=== PATIENT | female | born 1935 | race African-American/Black ===

== ENCOUNTER 2020-09-20 03:27 | Emergency (ER) | payer MEDICARE, BC ==
[~2020-09-20] VITALS: Ht 157.5 cm; Wt 73.0 kg
[~2020-09-20 03:27] MED LIST: AMLO2.5T45 PO; ASPI-1073 PO; ATOR10TA69 PO; CALCITONIN SALMON PO; FESO4TAB PO; POTA20TA12 PO; TRIA1TAB5 PO
[2020-09-20] MEDS ORDERED: PREDNISONE 20MG TABLET PO STA (03:39)
[2020-09-20] MEDS ORDERED: MAGNESIUM 2 G PREMIX 50 ML IV STA (03:39)
[2020-09-20] MEDS ORDERED: IPRATROPIUM BROMIDE (0.02%) 0.5MG/2.5ML NEB HHN STA (03:39)
[2020-09-20] MEDS ORDERED: ALBUTEROL (0.083%) 2.5MG/3ML NEB HHN STA (03:39)
[2020-09-20 05:18] VITALS: BP 158/62
== END 2020-09-20 05:20 | disposition home or self-care (01) ==
LOC: ER 03:27
DX: J44.1 Chronic obstructive pulmonary disease with (acute) exacerbation (principal); N28.9 Disorder of kidney and ureter, unspecified; Z20.828 Contact with and (suspected) exposure to other viral communicable diseases; Z88.0 Allergy status to penicillin; Z79.899 Other long term (current) drug therapy
CPT/HCPCS: 71045; 94644; 96365; 99291; C9803; J3475; J7512; U0003

== ENCOUNTER 2020-09-21 06:09 | Inpatient (IN) | payer MEDICARE, BC ==
[~2020-09-21] VITALS: Ht 152.4 cm; Wt 54.0 kg
[2020-09-21] MEDS ORDERED: METHYLPREDNISOLONE SOD SUCC 125 MG/2 ML VIAL IV STA (06:42)
[2020-09-21] MEDS ORDERED: IPRATROPIUM BROMIDE (0.02%) 0.5MG/2.5ML NEB HHN STA (06:42)
[2020-09-21] MEDS ORDERED: MAGNESIUM 2 G PREMIX 50 ML IV STA (06:42)
[2020-09-21] MEDS ORDERED: ALBUTEROL (0.083%) 2.5MG/3ML NEB HHN STA (06:42)
[2020-09-21 09:06] LABS: CHLORIDE 107 mEq/L (98-107); HEMATOCRIT. 26.6 % (36.0-48.0); MEAN CORPUSCULAR HEMOGLOBIN 34.1 pg (28.0-32.0); MEAN CORPUSCULAR VOLUME 100.9 fL (81.0-99.0); PLATELET 273 x1000/uL (130-400); RED BLOOD CELL COUNT 2.63 mill/uL (4.2-5.4); RED CELL DISTRIBUTION WIDTH 15.9 % (11.6-14.6)
[2020-09-21] MEDS ORDERED: LEVOFLOXACIN 750MG PREMIX 150 ML IV ONE (09:30)
[2020-09-21 10:01] LABS: BG BASE EXCESS -4.3 mmol/L (-2.0-2.0); BG CARBOXYHEMOGLOBIN 0.3 % (0.5-1.5); BG DEOXYHEMOGLOBIN 0.6 % (0.0-5.0); BG HCO3 ACT 19.9 mmol/L (22.0-26.0); BG METHEMOGLOBIN 0.3 % (0.0-1.5); BG OXYGEN SATURATION 99.4 % (92.0-98.5); BG OXYHEMOGLOBIN 98.8 % (94.0-97.0); BG PH 7.399 (7.350-7.450); BG PO2 507.9 mmHg (75.0-100.0); BG SAMPLE SITE RIGHT BRACHIAL; BG VENT MODE MASK - BIPAP
[2020-09-21 10:37] LABS: PLATELET ESTIMATE NORMAL
[2020-09-21] MEDS ORDERED: MAGNESIUM/ALUMINUM HYDROXIDE/SIMETHICONE 30ML UDC PO PRN (19:30)
[2020-09-21] MEDS ORDERED: IPRATROPIUM/ALBUTEROL 0.5-3(2.5)MG/3ML NEB HHN PRN (19:30)
[2020-09-21] MEDS ORDERED: DEXT 5%/0.45% NACL 1000ML 1,000 ML IV SCH (19:30)
[2020-09-21] MEDS ORDERED: GUAIFENESIN 200MG/10ML SUGAR FREE UDC PO PRN (19:30)
[2020-09-21] MEDS ORDERED: ACETAMINOPHEN 325MG TABLET PO PRN (19:30)
[2020-09-21] MEDS ORDERED: CLONIDINE 0.1MG TABLET PO PRN (19:30)
[2020-09-21] MEDS ORDERED: DIPHENHYDRAMINE 50MG/ML VIAL IV PRN (19:30)
[2020-09-21] MEDS: OMEPRAZOLE 20MG CAPSULE EXTENDED RELEASE PO SCH (21:52)
[2020-09-21] MEDS: ENOXAPARIN 40MG/0.4ML SYR SUBCUT SCH (21:52)
[2020-09-21 22:25] LABS: TOTAL IRON BINDING CAPACITY 258 ug/dL (250-450)
[2020-09-21] MEDS: CARVEDILOL 6.25 MG TABLET PO SCH (23:01)
[2020-09-22] VITALS (12 sets, daily range): BP systolic 132–161; BP diastolic 60–96
[2020-09-22] MEDS: ZOLPIDEM TARTRATE 5MG TABLET PO PRN (02:32)
[2020-09-22] MEDS: ACETAMINOPHEN 325MG TABLET PO PRN (02:32)
[2020-09-22 07:08] LABS: HEMATOCRIT. 24.9 % (36.0-48.0); HEMOGLOBIN. 8.4 g/dL (12.0-16.0); MEAN CORPUSCULAR HEMOGLOBIN 33.7 pg (28.0-32.0); MEAN CORPUSCULAR VOLUME 99.9 fL (81.0-99.0); MEAN PLATELET VOLUME 8.8 fl (7.4-10.4); PLATELET 231 x1000/uL (130-400); RED CELL DISTRIBUTION WIDTH 15.4 % (11.6-14.6)
[2020-09-22 07:24] LABS: PHOSPHORUS 7.3 mg/dL (2.5-4.9)
[2020-09-22] MEDS: OMEPRAZOLE 20MG CAPSULE EXTENDED RELEASE PO SCH ×2 (08:40→21:09)
[2020-09-22] MEDS: CARVEDILOL 6.25 MG TABLET PO SCH ×2 (08:41→21:10)
[2020-09-22] MEDS ORDERED: LOSARTAN POTASSIUM 50 MG TABLET PO SCH (09:00)
[2020-09-22] MEDS ORDERED: FUROSEMIDE 40MG/4ML VIAL IVP NR (13:00)
[2020-09-22] MEDS ORDERED: FUROSEMIDE 100MG/10ML VIAL IVP ONE (13:30)
[2020-09-22 13:34] LABS: PLATELET ESTIMATE NORMAL
[2020-09-22] MEDS: NITROGLYCERIN OINT 1GM/INCH UDPKT TD SCH ×2 (14:33→21:11)
[2020-09-22 18:00] LABS: T4 FREE 0.93 ng/dL (0.76-1.46)
[2020-09-22] MEDS ORDERED: FUROSEMIDE 100MG/10ML VIAL IVP NR (20:00)
[2020-09-22] MEDS: AMLODIPINE 2.5MG TABLET PO SCH (21:10)
[2020-09-22] MEDS: ONDANSETRON HCL 4MG/2ML INJ IV PRN (21:11)
[2020-09-22] MEDS: ENOXAPARIN 40MG/0.4ML SYR SUBCUT SCH (21:17)
[2020-09-23] VITALS (11 sets, daily range): BP systolic 103–136; BP diastolic 49–92
[2020-09-23 06:55] LABS: HEMATOCRIT. 24.1 % (36.0-48.0); MEAN CORPUSCULAR HEMOGLOBIN 32.9 pg (28.0-32.0); MEAN CORPUSCULAR VOLUME 99.5 fL (81.0-99.0); MEAN PLATELET VOLUME 9.2 fl (7.4-10.4); PLATELET 186 x1000/uL (130-400); RED BLOOD CELL COUNT 2.42 mill/uL (4.2-5.4); RED CELL DISTRIBUTION WIDTH 15.6 % (11.6-14.6)
[2020-09-23 07:12] LABS: VITAMIN B12 SERUM >2000 pg/mL pg/mL (211-911)
[2020-09-23] MEDS: NITROGLYCERIN OINT 1GM/INCH UDPKT TD SCH ×3 (07:42→22:00)
[2020-09-23 08:00] LABS: PHOSPHORUS 8.9 mg/dL (2.5-4.9)
[2020-09-23] MEDS: CALCIUM ACETATE 667MG CAPSULE PO SCH ×3 (08:33→18:41)
[2020-09-23] MEDS: OMEPRAZOLE 20MG CAPSULE EXTENDED RELEASE PO SCH ×2 (08:33→21:15)
[2020-09-23] MEDS: CARVEDILOL 6.25 MG TABLET PO SCH ×2 (08:34→21:17)
[2020-09-23] MEDS: AMLODIPINE 2.5MG TABLET PO SCH ×2 (08:34→21:23)
[2020-09-23] MEDS: IPRATROPIUM/ALBUTEROL 0.5-3(2.5)MG/3ML NEB HHN SCH ×2 (08:47→21:09)
[2020-09-23] MEDS: FOLIC ACID/VITAMIN B COMP W-C TABLET PO SCH (13:21)
[2020-09-23] MEDS: METHYLPREDNISOLONE SOD SUCC 40 MG/ML VIAL IV SCH ×2 (13:21→21:12)
[2020-09-23 18:03] LABS: PLATELET ESTIMATE NORMAL
[2020-09-23] MEDS ORDERED: EPOETIN ALFA-EPBX 10,000 UNIT/ML VIAL SUBCUT SCH (21:00)
[2020-09-23] MEDS: ZOLPIDEM TARTRATE 5MG TABLET PO PRN (21:14)
[2020-09-23] MEDS: ENOXAPARIN 30MG/0.3ML SYR SUBCUT SCH (21:16)
[2020-09-24] VITALS (12 sets, daily range): BP systolic 106–149; BP diastolic 47–110
[2020-09-24] MEDS: METHYLPREDNISOLONE SOD SUCC 40 MG/ML VIAL IV SCH ×3 (02:46→20:04)
[2020-09-24] MEDS: NITROGLYCERIN OINT 1GM/INCH UDPKT TD SCH ×3 (05:28→20:05)
[2020-09-24 08:08] LABS: HEMATOCRIT. 23.3 % (36.0-48.0); HEMOGLOBIN. 7.8 g/dL (12.0-16.0); MEAN CORPUSCULAR HEMOGLOBIN 33.6 pg (28.0-32.0); PLATELET 177 x1000/uL (130-400); RED BLOOD CELL COUNT 2.33 mill/uL (4.2-5.4); RED CELL DISTRIBUTION WIDTH 15.7 % (11.6-14.6)
[2020-09-24] MEDS: CALCIUM ACETATE 667MG CAPSULE PO SCH ×3 (08:22→17:04)
[2020-09-24] MEDS: FOLIC ACID/VITAMIN B COMP W-C TABLET PO SCH (08:22)
[2020-09-24] MEDS: OMEPRAZOLE 20MG CAPSULE EXTENDED RELEASE PO SCH ×2 (08:22→20:04)
[2020-09-24] MEDS: CARVEDILOL 6.25 MG TABLET PO SCH ×2 (08:23→20:04)
[2020-09-24] MEDS: AMLODIPINE 2.5MG TABLET PO SCH ×2 (08:23→20:17)
[2020-09-24 09:13] LABS: PHOSPHORUS 8.5 mg/dL (2.5-4.9)
[2020-09-24] MEDS ORDERED: HEPARIN SODIUM 1,000 UNIT/1ML VIAL IV SCH (09:30)
[2020-09-24 11:23] LABS: HEPATITIS B SURFACE ANTIGEN NEGATIVE
[2020-09-24] MEDS: IPRATROPIUM/ALBUTEROL 0.5-3(2.5)MG/3ML NEB HHN SCH ×2 (16:57→20:54)
[2020-09-24 17:08] LABS: PLATELET ESTIMATE NORMAL
[2020-09-24] MEDS: ENOXAPARIN 30MG/0.3ML SYR SUBCUT SCH (20:05)
[2020-09-25] VITALS (15 sets, daily range): BP systolic 113–156; BP diastolic 57–75
[2020-09-25] MEDS: IPRATROPIUM/ALBUTEROL 0.5-3(2.5)MG/3ML NEB HHN SCH ×3 (00:35→21:51)
[2020-09-25] MEDS: METHYLPREDNISOLONE SOD SUCC 40 MG/ML VIAL IV SCH ×3 (03:35→17:57)
[2020-09-25] MEDS: NITROGLYCERIN OINT 1GM/INCH UDPKT TD SCH ×3 (05:31→22:31)
[2020-09-25 07:00] LABS: HEMATOCRIT. 24.3 % (36.0-48.0); HEMOGLOBIN. 8.1 g/dL (12.0-16.0); MEAN CORPUSCULAR HEMOGLOBIN 33.1 pg (28.0-32.0); MEAN CORPUSCULAR VOLUME 98.9 fL (81.0-99.0); MEAN PLATELET VOLUME 9.8 fl (7.4-10.4); PLATELET 196 x1000/uL (130-400); RED BLOOD CELL COUNT 2.46 mill/uL (4.2-5.4); RED CELL DISTRIBUTION WIDTH 15.6 % (11.6-14.6)
[2020-09-25 07:40] LABS: PHOSPHORUS 4.9 mg/dL (2.5-4.9)
[2020-09-25] MEDS: FOLIC ACID/VITAMIN B COMP W-C TABLET PO SCH (08:53)
[2020-09-25] MEDS: CALCIUM ACETATE 667MG CAPSULE PO SCH ×3 (08:53→17:18)
[2020-09-25] MEDS: OMEPRAZOLE 20MG CAPSULE EXTENDED RELEASE PO SCH (08:53)
[2020-09-25] MEDS: AMLODIPINE 2.5MG TABLET PO SCH ×2 (09:00→20:38)
[2020-09-25] MEDS: CARVEDILOL 6.25 MG TABLET PO SCH ×2 (09:00→20:39)
[2020-09-25] MEDS: ACETAMINOPHEN 325MG TABLET PO PRN (11:50)
[2020-09-25] MEDS: FERROUS SULFATE 325MG TABLET PO SCH (17:18)
[2020-09-25 19:06] LABS: PLATELET ESTIMATE NORMAL
[2020-09-25] MEDS: ENOXAPARIN 30MG/0.3ML SYR SUBCUT SCH (20:39)
[2020-09-26] VITALS (12 sets, daily range): BP systolic 120–157; BP diastolic 65–92
[2020-09-26] MEDS: ACETAMINOPHEN 325MG TABLET PO PRN ×2 (02:32→09:33)
[2020-09-26] MEDS: METHYLPREDNISOLONE SOD SUCC 40 MG/ML VIAL IV SCH ×3 (02:43→18:17)
[2020-09-26] MEDS: IPRATROPIUM/ALBUTEROL 0.5-3(2.5)MG/3ML NEB HHN SCH ×3 (03:33→15:14)
[2020-09-26] MEDS: NITROGLYCERIN OINT 1GM/INCH UDPKT TD SCH ×3 (06:18→21:21)
[2020-09-26] MEDS: CALCIUM ACETATE 667MG CAPSULE PO SCH ×3 (08:54→17:49)
[2020-09-26] MEDS: FAMOTIDINE 20MG TABLET PO SCH (08:54)
[2020-09-26] MEDS: FOLIC ACID/VITAMIN B COMP W-C TABLET PO SCH (08:54)
[2020-09-26] MEDS: CARVEDILOL 6.25 MG TABLET PO SCH ×2 (08:55→21:20)
[2020-09-26] MEDS: AMLODIPINE 2.5MG TABLET PO SCH ×2 (08:55→21:20)
[2020-09-26] MEDS: FERROUS SULFATE 325MG TABLET PO SCH ×2 (09:32→17:49)
[2020-09-26 12:13] LABS: HEMATOCRIT 32.3 % (36.0-48.0); HEMOGLOBIN 10.8 g/dL (12.0-16.0); PLATELET 180 x1000/uL (130-400); RED BLOOD CELL COUNT 3.26 mill/uL (4.2-5.4); RED CELL DISTRIBUTION WIDTH 14.9 % (11.6-14.6)
[2020-09-26] MEDS: HYDROCODONE/APAP 7.5/325MG 1 TAB TABLET PO PRN (12:40)
[2020-09-26] MEDS: ONDANSETRON HCL 4MG/2ML INJ IV PRN (14:26)
[2020-09-26] MEDS: ENOXAPARIN 30MG/0.3ML SYR SUBCUT SCH (21:21)
[2020-09-26] MEDS: ZOLPIDEM TARTRATE 5MG TABLET PO PRN (23:40)
[2020-09-27] VITALS (12 sets, daily range): BP systolic 129–160; BP diastolic 50–88
[2020-09-27] MEDS: METHYLPREDNISOLONE SOD SUCC 40 MG/ML VIAL IV SCH ×3 (03:01→18:06)
[2020-09-27] MEDS: HYDROCODONE/APAP 7.5/325MG 1 TAB TABLET PO PRN ×2 (03:02→22:38)
[2020-09-27] MEDS: NITROGLYCERIN OINT 1GM/INCH UDPKT TD SCH ×3 (05:20→22:42)
[2020-09-27 07:49] LABS: HEMOGLOBIN. 11.4 g/dL (12.0-16.0); MEAN CORPUSCULAR HEMOGLOBIN 33.2 pg (28.0-32.0); MEAN CORPUSCULAR VOLUME 98.8 fL (81.0-99.0); MEAN PLATELET VOLUME 9.8 fl (7.4-10.4); PLATELET 223 x1000/uL (130-400); RED BLOOD CELL COUNT 3.44 mill/uL (4.2-5.4); RED CELL DISTRIBUTION WIDTH 14.8 % (11.6-14.6)
[2020-09-27] MEDS: CALCIUM ACETATE 667MG CAPSULE PO SCH ×3 (09:05→17:29)
[2020-09-27] MEDS: FERROUS SULFATE 325MG TABLET PO SCH ×2 (09:05→17:29)
[2020-09-27] MEDS: AMLODIPINE 2.5MG TABLET PO SCH ×2 (09:05→22:00)
[2020-09-27] MEDS: FOLIC ACID/VITAMIN B COMP W-C TABLET PO SCH (09:05)
[2020-09-27] MEDS: FAMOTIDINE 20MG TABLET PO SCH (09:05)
[2020-09-27] MEDS: CARVEDILOL 6.25 MG TABLET PO SCH ×2 (09:06→22:00)
[2020-09-27] MEDS: IPRATROPIUM/ALBUTEROL 0.5-3(2.5)MG/3ML NEB HHN SCH ×2 (10:46→21:11)
[2020-09-27] MEDS: PANTOPRAZOLE SODIUM 40 MG/VIAL IV SCH (12:13)
[2020-09-27 15:51] LABS: PLATELET ESTIMATE NORMAL
[2020-09-27] MEDS ORDERED: EPOETIN ALFA-EPBX 4,000 UNIT/ML VIAL SUBCUT SCH (21:00)
[2020-09-27] MEDS: ENOXAPARIN 30MG/0.3ML SYR SUBCUT SCH (22:01)
[2020-09-28] VITALS (13 sets, daily range): BP systolic 123–170; BP diastolic 65–95
[2020-09-28] MEDS: IPRATROPIUM/ALBUTEROL 0.5-3(2.5)MG/3ML NEB HHN SCH ×4 (00:37→21:26)
[2020-09-28] MEDS: METHYLPREDNISOLONE SOD SUCC 40 MG/ML VIAL IV SCH ×2 (03:43→12:09)
[2020-09-28] MEDS: NITROGLYCERIN OINT 1GM/INCH UDPKT TD SCH ×3 (05:25→22:00)
[2020-09-28] MEDS: CALCIUM ACETATE 667MG CAPSULE PO SCH ×3 (08:56→17:32)
[2020-09-28] MEDS: PANTOPRAZOLE SODIUM 40 MG/VIAL IV SCH (08:56)
[2020-09-28] MEDS: CARVEDILOL 6.25 MG TABLET PO SCH ×2 (08:57→21:59)
[2020-09-28] MEDS: FAMOTIDINE 20MG TABLET PO SCH (08:57)
[2020-09-28] MEDS: FERROUS SULFATE 325MG TABLET PO SCH ×2 (08:57→17:32)
[2020-09-28] MEDS: FOLIC ACID/VITAMIN B COMP W-C TABLET PO SCH (08:57)
[2020-09-28] MEDS: AMLODIPINE 2.5MG TABLET PO SCH ×2 (08:58→21:59)
[2020-09-28 12:53] LABS: HEMATOCRIT. 35.7 % (36.0-48.0); HEMOGLOBIN. 11.8 g/dL (12.0-16.0); MEAN CORPUSCULAR HEMOGLOBIN 32.4 pg (28.0-32.0); MEAN CORPUSCULAR VOLUME 98.4 fL (81.0-99.0); MEAN PLATELET VOLUME 9.9 fl (7.4-10.4); PLATELET 191 x1000/uL (130-400); RED BLOOD CELL COUNT 3.63 mill/uL (4.2-5.4); RED CELL DISTRIBUTION WIDTH 14.6 % (11.6-14.6)
[2020-09-28 12:58] LABS: PARTIAL THROMBOPLASTIN TIME 28.5 sec (23.4-31.0); PROTHROMBIN TIME 10.6 sec (9.6-11.0)
[2020-09-28 17:14] LABS: BG BASE EXCESS 1.2 mmol/L (-2.0-2.0); BG CARBOXYHEMOGLOBIN 0.3 % (0.5-1.5); BG DEOXYHEMOGLOBIN 1.7 % (0.0-5.0); BG FRACTION INSPIRED OXYGEN 50; BG HCO3 ACT 25.2 mmol/L (22.0-26.0); BG METHEMOGLOBIN 0.1 % (0.0-1.5); BG OXYGEN SATURATION 98.3 % (92.0-98.5); BG OXYHEMOGLOBIN 97.9 % (94.0-97.0); BG PO2 113.4 mmHg (75.0-100.0); BG SAMPLE SITE RIGHT BRACHIAL; BG VENT MODE MASK - VENTI
[2020-09-28] MEDS ORDERED: LORAZEPAM 0.5MG TABLET PO PRN (17:15)
[2020-09-28 18:37] LABS: PLATELET ESTIMATE NORMAL
[2020-09-28] MEDS: ZOLPIDEM TARTRATE 5MG TABLET PO PRN (21:59)
[2020-09-28] MEDS: ENOXAPARIN 30MG/0.3ML SYR SUBCUT SCH (21:59)
[2020-09-28] MEDS ORDERED: METHYLPREDNISOLONE SOD SUCC 40 MG/ML VIAL IV SCH (23:00)
[2020-09-29] VITALS (12 sets, daily range): BP systolic 107–158; BP diastolic 55–92
[2020-09-29] MEDS: IPRATROPIUM/ALBUTEROL 0.5-3(2.5)MG/3ML NEB HHN SCH ×4 (01:50→22:20)
[2020-09-29] MEDS: NITROGLYCERIN OINT 1GM/INCH UDPKT TD SCH ×3 (05:22→20:34)
[2020-09-29 07:18] LABS: HEMATOCRIT. 36.3 % (36.0-48.0); HEMOGLOBIN. 12.1 g/dL (12.0-16.0); MEAN CORPUSCULAR HEMOGLOBIN 32.7 pg (28.0-32.0); MEAN CORPUSCULAR VOLUME 98.3 fL (81.0-99.0); MEAN PLATELET VOLUME 9.6 fl (7.4-10.4); PLATELET 178 x1000/uL (130-400); RED BLOOD CELL COUNT 3.69 mill/uL (4.2-5.4); RED CELL DISTRIBUTION WIDTH 14.6 % (11.6-14.6)
[2020-09-29 07:28] LABS: PHOSPHORUS 3.6 mg/dL (2.5-4.9)
[2020-09-29] MEDS: DOXERCALCIFEROL 0.5MCG CAPSULE PO SCH (09:00)
[2020-09-29] MEDS: CARVEDILOL 6.25 MG TABLET PO SCH ×2 (09:00→20:33)
[2020-09-29] MEDS ORDERED: METHYLPREDNISOLONE SOD SUCC 40 MG/ML VIAL IV SCH (09:00)
[2020-09-29] MEDS: AMLODIPINE 2.5MG TABLET PO SCH ×2 (09:00→20:33)
[2020-09-29] MEDS: CALCIUM ACETATE 667MG CAPSULE PO SCH ×3 (09:07→18:53)
[2020-09-29] MEDS: FERROUS SULFATE 325MG TABLET PO SCH ×2 (09:08→18:53)
[2020-09-29] MEDS: FAMOTIDINE 20MG TABLET PO SCH (09:08)
[2020-09-29] MEDS: FOLIC ACID/VITAMIN B COMP W-C TABLET PO SCH (09:08)
[2020-09-29] MEDS: PANTOPRAZOLE SODIUM 40 MG/VIAL IV SCH (09:09)
[2020-09-29 17:27] LABS: PLATELET ESTIMATE NORMAL
[2020-09-29] MEDS: ENOXAPARIN 30MG/0.3ML SYR SUBCUT SCH (20:33)
[2020-09-29] MEDS: ZOLPIDEM TARTRATE 5MG TABLET PO PRN (20:33)
[2020-09-30] VITALS (22 sets, daily range): BP systolic 86–158; BP diastolic 50–86
[2020-09-30] MEDS: IPRATROPIUM/ALBUTEROL 0.5-3(2.5)MG/3ML NEB HHN SCH ×4 (04:17→21:18)
[2020-09-30 06:21] LABS: HEMOGLOBIN. 11.5 g/dL (12.0-16.0); MEAN CORPUSCULAR HEMOGLOBIN 33.2 pg (28.0-32.0); MEAN CORPUSCULAR VOLUME 97.9 fL (81.0-99.0); MEAN PLATELET VOLUME 9.5 fl (7.4-10.4); PLATELET 149 x1000/uL (130-400); RED BLOOD CELL COUNT 3.47 mill/uL (4.2-5.4); RED CELL DISTRIBUTION WIDTH 14.9 % (11.6-14.6)
[2020-09-30] MEDS: NITROGLYCERIN OINT 1GM/INCH UDPKT TD SCH ×2 (06:29→14:00)
[2020-09-30 06:45] LABS: PHOSPHORUS 2.1 mg/dL (2.5-4.9)
[2020-09-30] MEDS: CALCIUM ACETATE 667MG CAPSULE PO SCH ×3 (08:00→17:49)
[2020-09-30] MEDS: FERROUS SULFATE 325MG TABLET PO SCH ×2 (08:00→17:49)
[2020-09-30] MEDS: FAMOTIDINE 20MG TABLET PO SCH (09:00)
[2020-09-30] MEDS: FOLIC ACID/VITAMIN B COMP W-C TABLET PO SCH (09:00)
[2020-09-30] MEDS: DOXERCALCIFEROL 0.5MCG CAPSULE PO SCH (09:00)
[2020-09-30] MEDS ORDERED: METHYLPREDNISOLONE SOD SUCC 40 MG/ML VIAL IV SCH (09:00)
[2020-09-30] MEDS ORDERED: SODIUM BICARBONATE 4% (2.4MEQ) 5ML VIAL IV ONE (09:05)
[2020-09-30] MEDS ORDERED: LIDOCAINE HCL 1% 20ML VIAL (Pyxis) INJ ONE (09:06)
[2020-09-30] MEDS ORDERED: CLINDAMYCIN 300 MG in DEXTROSE 5% WATER 50 ML IV NR (09:30)
[2020-09-30] MEDS ORDERED: FENTANYL CITRATE/PF 50MCG/ML 2ML VIAL ONE (09:34)
[2020-09-30] MEDS: CARVEDILOL 6.25 MG TABLET PO SCH ×2 (13:33→20:48)
[2020-09-30] MEDS: AMLODIPINE 2.5MG TABLET PO SCH ×2 (13:33→20:47)
[2020-09-30 15:18] LABS: PLATELET ESTIMATE NORMAL
[2020-09-30] MEDS: ENOXAPARIN 30MG/0.3ML SYR SUBCUT SCH (20:50)
== END 2020-09-30 23:00 | disposition home or self-care (01) | DRG 871 ==
LOC: ER 06:09 → 5EST 10:33 → CANRESERV 21:24 → ENRESERV 21:24 → 5EST 09-24 16:49
PROVIDERS: ADMIT Internal Medicine; ATTEND Internal Medicine
PROC: 5A09457 Assistance with Respiratory Ventilation, 24-96 Consecutive Hours, Continuous Positive Airway Pressure (ICD-10-PCS; principal; 2020-09-21)
PROC: 02HV33Z Insertion of Infusion Device into Superior Vena Cava, Percutaneous Approach (ICD-10-PCS; 2020-09-23)
PROC: B5181ZA Fluoroscopy of Superior Vena Cava using Low Osmolar Contrast, Guidance (ICD-10-PCS; 2020-09-23)
PROC: B548ZZA Ultrasonography of Superior Vena Cava, Guidance (ICD-10-PCS; 2020-09-23)
PROC: 5A1D70Z Performance of Urinary Filtration, Intermittent, Less than 6 Hours Per Day (ICD-10-PCS; 2020-09-24)
PROC: 30233N1 Transfusion of Nonautologous Red Blood Cells into Peripheral Vein, Percutaneous Approach (ICD-10-PCS; 2020-09-25)
PROC: 5A1D70Z Performance of Urinary Filtration, Intermittent, Less than 6 Hours Per Day (ICD-10-PCS; 2020-09-26)
PROC: 5A1D70Z Performance of Urinary Filtration, Intermittent, Less than 6 Hours Per Day (ICD-10-PCS; 2020-09-28)
PROC: 02PYX3Z Removal of Infusion Device from Great Vessel, External Approach (ICD-10-PCS; 2020-09-30)
PROC: 0JHD3XZ Insertion of Tunneled Vascular Access Device into Right Upper Arm Subcutaneous Tissue and Fascia, Percutaneous Approach (ICD-10-PCS; 2020-09-30)
PROC: 02HV33Z Insertion of Infusion Device into Superior Vena Cava, Percutaneous Approach (ICD-10-PCS; 2020-09-30)
PROC: B5181ZA Fluoroscopy of Superior Vena Cava using Low Osmolar Contrast, Guidance (ICD-10-PCS; 2020-09-30)
DX: A41.9 Sepsis, unspecified organism (principal); J96.01 Acute respiratory failure with hypoxia; J18.9 Pneumonia, unspecified organism; I50.43 Acute on chronic combined systolic (congestive) and diastolic (congestive) heart failure; N17.0 Acute kidney failure with tubular necrosis; J44.1 Chronic obstructive pulmonary disease with (acute) exacerbation; I42.9 Cardiomyopathy, unspecified; E44.1 Mild protein-calorie malnutrition; I69.351 Hemiplegia and hemiparesis following cerebral infarction affecting right dominant side; N25.81 Secondary hyperparathyroidism of renal origin; N18.5 Chronic kidney disease, stage 5; I13.2 Hypertensive heart and chronic kidney disease with heart failure and with stage 5 chronic kidney disease, or end stage renal disease; J44.0 Chronic obstructive pulmonary disease with (acute) lower respiratory infection; I38 Endocarditis, valve unspecified; I48.91 Unspecified atrial fibrillation; D64.9 Anemia, unspecified; M19.90 Unspecified osteoarthritis, unspecified site; Z20.828 Contact with and (suspected) exposure to other viral communicable diseases; E87.5 Hyperkalemia; I27.20 Pulmonary hypertension, unspecified; M41.9 Scoliosis, unspecified; M81.0 Age-related osteoporosis without current pathological fracture; Z68.23 Body mass index [BMI] 23.0-23.9, adult; Z88.0 Allergy status to penicillin; Z79.82 Long term (current) use of aspirin; Z79.899 Other long term (current) drug therapy; Z99.81 Dependence on supplemental oxygen; I35.0 Nonrheumatic aortic (valve) stenosis
CPT/HCPCS: 36415; 36556; 36558; 36589; 36600; 71045; 76770; 76937; 77001; 80048; 80053; 82270; 82306; 82375; 82607; 82805; 83540; 83550; 83735; 83880; 83970; 84100; 84439; 84443; 84484; 85025; 85027; 85044; 86705; 86803; 86850; 86900; 86920; 87340; 87426; 87804; 93005; 93306; 94640; 94644; 94660; 96365; 99152; 99153; 99291; A6261; C1750; C1752; C1769; C9113; C9803; J0885; J1200; J1642; J1644; J1650; J1940; J1956; J2405; J2920; J2930; J3010; J3475; J3490; J7040; J7060; J7512; P9016; U0003; G0500

== ENCOUNTER 2020-10-01 12:42 | Emergency (ER) | payer MEDICARE, BC ==
[~2020-10-01] VITALS: Ht 157.5 cm; Wt 52.0 kg
[2020-10-01] MEDS ORDERED: DESMOPRESSIN ACETATE IVPB 15 MCG in SODIUM CHLORIDE 0.9% 50 ML IV ONE (14:15)
[2020-10-01 15:00] LABS: HEMATOCRIT. 38.3 % (36.0-48.0); HEMOGLOBIN. 12.5 g/dL (12.0-16.0); MEAN CORPUSCULAR HEMOGLOBIN 32.4 pg (28.0-32.0); MEAN CORPUSCULAR VOLUME 99.3 fL (81.0-99.0); PLATELET 162 x1000/uL (130-400); RED BLOOD CELL COUNT 3.86 mill/uL (4.2-5.4); RED CELL DISTRIBUTION WIDTH 15.1 % (11.6-14.6)
[2020-10-01 15:09] LABS: PROTHROMBIN TIME 10.4 sec (9.6-11.0)
[2020-10-01 16:37] LABS: PLATELET ESTIMATE NORMAL
[2020-10-01 18:20] VITALS: BP 141/78
== END 2020-10-01 19:03 | disposition home or self-care (01) ==
LOC: ER 12:42
DX: S40.022A Contusion of left upper arm, initial encounter (principal); S40.021A Contusion of right upper arm, initial encounter; J44.9 Chronic obstructive pulmonary disease, unspecified; Z88.0 Allergy status to penicillin; Z79.899 Other long term (current) drug therapy; Z79.82 Long term (current) use of aspirin; Z98.890 Other specified postprocedural states; N18.6 End stage renal disease; Z99.2 Dependence on renal dialysis; X58.XXXA Exposure to other specified factors, initial encounter; Y93.89 Activity, other specified; Y92.89 Other specified places as the place of occurrence of the external cause; Y99.8 Other external cause status
CPT/HCPCS: 36415; 80048; 85025; 85610; 93005; 96365; 99284; J2597